=== PATIENT | female | born 2000 | race Caucasian/White ===

== ENCOUNTER 2019-06-07 20:05 | Outpatient (CLI) | payer MEDICAID ==
--- NOTE | 2019-06-07 21:38 | NUR ---
DR. CALI NOTIFIED AND REVIEWED PT'S BEHAVIOR AND ASSESSMENT RESULTS . PT IS A LOW RISK PER DR. CALI. DR. CALI STATED TO GIVE RESOURCES TO PT AT TIME OF DISCHARGE. NO FURTHER ORDERS AT THIS TIME. RESOURCES REVIEWED WITH PT AND SHE VERBALIZED UNDERSTANDING.
== END 2019-06-07 21:53 | disposition home or self-care (01) ==
LOC: D.LDO 20:05
PROVIDERS: ATTEND Obstetrics & Gynecology
DX: O36.8190 Decreased fetal movements, unspecified trimester, not applicable or unspecified (principal)

== ENCOUNTER 2019-07-14 00:32 | Outpatient (CLI) | payer MEDICAID ==
[2019-07-14 01:17] LABS: BILIRUBIN NEGATIVE (NEGATIVE); GLUCOSE NEGATIVE (NEGATIVE); KETONE NEGATIVE (NEGATIVE); NITRITE NEGATIVE (NEGATIVE); UROBILINOGEN NORMAL (NORMAL)
[2019-07-14 01:18] LABS: BACTERIA FEW /hpf (NEGATIVE); EPITHELIAL CELLS 0-5 /hpf (0-5); RED CELLS - URINE 0-5 /hpf (0-5); WHITE CELLS - URINE 0-5 /hpf (NEGATIVE)
== END 2019-07-14 01:45 | disposition home or self-care (01) ==
LOC: D.LDO 00:32
PROVIDERS: ATTEND Obstetrics & Gynecology
DX: O26.899 Other specified pregnancy related conditions, unspecified trimester (principal); Z3A.00 Weeks of gestation of pregnancy not specified; N85.8 Other specified noninflammatory disorders of uterus

== ENCOUNTER 2019-07-25 19:51 | Inpatient (IN) | payer MEDICAID ==
[~2019-07-25] VITALS: Ht 170.2 cm; Wt 112.0 kg
[2019-07-25 21:19] VITALS: BP 116/78; Ht 170.2 cm; Wt 112.0 kg
[2019-07-25] MEDS ORDERED: PRENAVITE1 TAB PO (22:19)
[2019-07-26 00:45] LABS: HEMATOCRIT 39.6 % (36.0-48.0); MCH 30.2 pg (26.0-34.0); MCHC 32.8 g/dL (31.0-37.0); MCV 91.9 fL (80.0-100.0); MEAN PLATELET VOLUME 9.4 fL (7.4-10.4); RBC 4.31 10x6/uL (4.00-5.40); RDW 12.9 % (11.5-14.5); WBC 7.7 10x3/uL (4.8-10.8)
[2019-07-26 01:06] LABS: BILIRUBIN NEGATIVE (NEGATIVE); GLUCOSE NEGATIVE (NEGATIVE); KETONE NEGATIVE (NEGATIVE); NITRITE NEGATIVE (NEGATIVE); UROBILINOGEN NORMAL (NORMAL)
[2019-07-26 01:08] LABS: AMORPHOUS SEDIMENT <1+ /lpf (NONE SEEN); BACTERIA FEW /hpf (NEGATIVE); EPITHELIAL CELLS 0-5 /hpf (0-5); RED CELLS - URINE 0-5 /hpf (0-5); WHITE CELLS - URINE 0-5 /hpf (NEGATIVE)
[2019-07-26 01:09] LABS: CALCIUM OXALATE CRYSTALS 0-5 /hpf (NONE SEEN)
[2019-07-26 19:17] VITALS: BP 104/63
--- NOTE | 2019-07-26 20:30 | NUR ---
FUNDUS FIRM/MIDLINE/@U LOCHIA SMALL RUBRA. NURSING WELL, BONDING WELL. MOTRIN HAS WORKED WELL FOR CRAMPING.
--- NOTE | 2019-07-26 21:25 | NUR ---
SANDWICH, APPLE JUICE 360 ML GIVEN TO PATIENT. CONSUMED 100 PERCENT TALKED WITH PATIENT, ANXIETY LEVEL LOW. FAMILY HAS GONE HOME. PATIENT SETTLED INTO POST ROOM, DENIES NEEDS AT THIS TIME
--- NOTE | 2019-07-26 22:30 | NUR ---
SITTING UP IN BED HOLDING BABY, APPLE JUICE 240 ML PER REQUEST, FUNDUS FIRM, MIDLINE, @U LOCHIA SMALL RUBRA, PERINEUM INTACT. DENIES DISCOMFORT
[2019-07-26 23:23] VITALS: BP 123/73
--- NOTE | 2019-07-26 23:30 | NUR ---
UP TO BATHROOM, VOIDED, SECOND VOIDING SINCE DELIVERY. MARITZA CARE PER SELF, TUCKS AND DERMOPLAST SPRAY AT BEDSIDE FOR PRN USE.
--- NOTE | 2019-07-27 00:30 | NUR ---
BABY SPITTING, DEMONSTRATED USE OF BULB SYRINGE AND CLEARING SECRETIONS, PATIENT DEMONSTRATES BACK. COMPLETE BED LINEN CHANGE, PATIENT CHANGED BABY ON BED AND WAS SOILED WITH URINE. PATIENT C/O CRAMPING, INFORMED MOTRIN COULD BE DISPENSED IN ONE HOUR
--- NOTE | 2019-07-27 01:10 | NUR ---
MOTRIN 600MG TAB FOR CRAMPING, 5/10 PAIN SCALE, FUNDUS FIRM/ML/@U LOCHIA SM RUBRA. BABY SWADDLED AND PLACED IN CRIB FOR PATIENT TO SLEEP
--- NOTE | 2019-07-27 02:10 | NUR ---
CALLED TO ROOM, BABY CHOKING, DEMONSTRATED USE OF SUCTION BULB, AND CLEARING SECRETIONS. WALKED TO NURSERY FOR ASSESSMENT, MOTHER FEELS BABY HAS ASPIRATED, REASSURED HE IS ONLY CLEARING FLUID FROM DELIVERY BUT NURSERY NURSE CAN LISTEN TO LUNGS WITH STETHOSCOPE TO REASSURE HER. BABY'S LUNGS CLEAR, ASLEEP IN CRIB AND RETURNED TO ROOM
--- NOTE | 2019-07-27 03:20 | NUR ---
MOM HOLDING BABY SKIN TO SKIN, COVERED WITH WARM BLANKET. CRAMPING ACCEPTABLE, SAT IN ROOM AND TALKED WITH MOTHER, IS UPSET THAT BABY TEMP IS UNDER 98.0 AND MAY NEED TO GO TO NURSERY. PATIENT CALMER AFTER TALKING AND EXPLAINING BABY BURING CALORIES AND SUGAR TO STAY WARM.
--- NOTE | 2019-07-27 05:38 | NUR ---
sitting up in bed holding baby, request coffee, fresh water taken to patient as well, denies any other needs, call light in reach and SR up x2
[2019-07-27 06:35] LABS: BASOPHILS 0 % (0-2); EOSINOPHILS 0.3 % (0-7); HEMOGLOBIN 10.4 g/dL (12-16); IMMATURE GRANULOCYTES 0.1 % (0-5); LYMPHOCYTES 24.9 % (15-50); MCH 30.4 pg (26.0-34.0); MCHC 33.1 g/dL (31.0-37.0); MCV 91.8 fL (80.0-100.0); MEAN PLATELET VOLUME 9.1 fL (7.4-10.4); MONOCYTES 6.5 % (2-11); NEUTROPHILS 68.2 % (40-80); WBC 8.9 10x3/uL (4.8-10.8)
[2019-07-27 06:42] LABS: HEMATOCRIT 31.4 % (36.0-48.0); PLATELET COUNT 204 10x3/uL (130-400); RBC 3.42 10x6/uL (4.00-5.40)
[2019-07-27 07:11] LABS: RAPID PLASMA REAGIN Non Reactive (Non Reactive)
[2019-07-27 07:16] VITALS: BP 106/58
--- NOTE | 2019-07-27 07:16 | NUR ---
BEDSIDE REPORT REC'D FROM Jun IRIZARRY, GEMA. THIS RN, Edvin SHI, BARBYN STRIKER OUT, AND Edvin SALGUERO, RN IN ROOM DURING REPORT. PT CALM AND APPRECIATIVE OF CARE AT THIS TIME. SHIFT ASSESSMENT COMPLETED PER FLOWSHEETS. VSS. FUNDUS FIRM, MIDLINE AND U2 WITH SMALL AMT RUBRA LOCHIA, NO CLOTS NOTED. PT EDUCATED ON POST BLEEDING AND WHAT TO EXPECT DURING POST PERIOD, EDUCATED ON S/S TO REPORT TO MD AND WHEN TO BE CONCERNED REGARDING BLEEDING, VERBALIZES UNDERSTANDING. PT VERBALIZES UNDERSTANDING OF PERICARE AND DENIES QUESTIONS. REPORTS THAT SHE SHOWERED LAST PM AND DOES NOT WISH TO SHOWER OR HAVE LINENS CHANGED AT THIS TIME. C/O INTERMITTENT ABD CRAMPING /10, DENIES NEED FOR INTERVERNTION, STATES CRAMPING IS PRIMARLY WITH AND FOLLOWING FUNDUAL CHECKS. APPLE JUICE PROVIDED. REFUSES SCD'S. BED IN LOW POSITION WITH SRUP X2. CALL LIGHT AND PHONE WITHIN REACH. INFANT RESTING QUIETLY IN OPEN CRIB AT BEDSIDE. POC REVIEWED, VERBALIZES UNDERSTANDING AND AGREEMENT.
--- NOTE | 2019-07-27 08:33 | NUR ---
DR. GALE ON UNIT. SPOKE WITH DR. GALE REGARDING PT'S REPORTS THAT SHE HAD GIVEN HER A PLAN THAT WAS NOT BEING FOLLOWED, HOWEVER RN COULD NOT FIND SAID PLAN ON PT CHART AND PT DENIES HAVING COPY WITH HER. PER DR. GALE, PT HAD NOT GIVEN HER PLAN OR DISCUSSED WITH HER A PLAN OTHER THAN WANTING FEMALE MD TO PERFORM HER DELIVERY. DR. GALE NOTIFIED OF EVENTS DURING PM SHIFT WITH PT AND STAFF REGARDING TEMP DROP, PT BEING AFRAID SOMEONE WOULD TAKE HER , AND THAT NO ONE WAS FOLLOWING HER PLAN. PER DR. GALE SHE WILL ADDRESS WITH PT AND REINFORCE TEACHING.
--- NOTE | 2019-07-27 08:41 | NUR ---
DR. GALE BACK TO DESK, REPORTS THAT SHE DISCUSSED NRSY CARE FOR WITH PT AND REASSURED PT THAT NO ONE WAS TRYING TO TAKE FROM HER. DISCUSSED RESTARTING CELEXA WITH DR. GALE, PER DR. GALE SHE HAD PRESCRIBED MED BUT PT HAD REPORTED TO HER THAT SHE WAS NOT TAKING. ORDERS REC'D TO DISCUSS WITH PT, IF PT HAD BEEN TAKING CELEXA RESUME HOME DOSE.
--- NOTE | 2019-07-27 09:03 | NUR ---
RN TO BEDSIDE. CURRENTLY IN NBN. PT STATES THAT SHE IS TRYING TO REST. CELEXA USE DISCUSSED WITH PT, REPORTS THAT SHE IS NOT TAKING AND HAD NOT BEEN TAKING. DENIES PAIN AND NEEDS. BREAKFAST TRAY REMOVED WITH 100% OF MEAL EATEN. BED IN LOW POSITION WITH SRUPX2. CALL LIGHT AND PHONE WITHIN PT REACH. PT ENCOURAGED TO REST, STATES THAT SHE WILL. WILL CONTINUE TO MONITOR.
--- NOTE | 2019-07-27 10:17 | NUR ---
INFANT, C/O ABD CRAMPING, MOTRIN GIVEN PER ORDER AND PT REQUEST. ICE WATER PROVIDED. PT WITH QUESTIONS REGARDING TIMING AND LENGTHS OF FEEDS, QUESTIONS ANSWERED, HILTON HUNT LPN ALSO IN ROOM AND CONTINUES TO PROVIDED EDUCATION TO PT. DENIES ADDITIONAL NEEDS WILL CONTINUE TO MONITOR.
--- NOTE | 2019-07-27 10:53 | NUR ---
PT CALLS VIA CALL LIGHT, RN TO BEDSIDE, BONDING WITH . REQUEST SALAD AND CHICKEN STRIPS WITH HONEY MUSTARD, DIET MESSAGE SENT. DENIES ADDITIONAL NEEDS. MED RECORDS JEWEL FLAT SURFACER TO ROOM TO DISCUSS INSURANCE INFO WITH PT. WILL CONTINUE TO MONITOR.
--- NOTE | 2019-07-27 11:08 | NUR ---
PAIN NOW 2/, BONDING WITH . REPORTS THAT SHE IS STILL FEELING OCCASIONAL CRAMPING BUT STATES THAT IT IS MUCH BETTER NOW THAT SHE IS NOT . DENIES NEEDS. ICE WATER PROVIDED. BED IN LOW POSITION WITH SRUP X2. CALL LIGHT AND PHONE WITHIN REACH. WILL CONTINUE TO MONITOR.
--- NOTE | 2019-07-27 12:37 | NUR ---
AMBULATORY IN HUFF WITH HILTON HUNT LPN AND IN OPEN CRIB. SHARMAINEMYRA NOTED, C/O ABD CRAMPING 7/10 WITH AMBULATION, 4/10 WHEN SITTING AT REST. STANDBY ASSIST BACK TO ROOM. REPORTS THAT SHE JUST COMPLETED FEEDING AND CRAMPING WAS MINIMAL PRIOR TO FEEDING. EDUCATED THAT CRAMPING IS NORMAL FOLLOWING AND IS BODY'S WAY OF GETTING UTERUS BACK TO PREPREG STATE, AND IT IS WORSE DURING FEEDINGS D/T RELEASE OF OXYTOCIN TO CAUSE LET DOWN, VERBALIZES UNDERSTANDING. WILL REPORT TO DR. GALE. ENCOURAGED REST AND PO HYDRATION. ICE WATER PROVIDED, CURRENTLY IN BED, WITH INFANT RESTING QUIETLY IN OPEN CRIB. BED IN LOW POSITION WITH SRUP X2. CALL LIGHT AND PHONE WITHIN REACH. WILL CONTINUE TO MONITOR.
--- NOTE | 2019-07-27 12:41 | NUR ---
REPORT CALLED TO DR. GALE, ORDERS REC'D FOR 650 MG PO TYLENOL [id number] CRAMPING/PAIN AND 1 TIME 5MG/325MG PERCOCET IF PT AGREEABLE. DR. GALE ALSO INFORMED THAT PEDI WANTED TO KEEP INFANT FOR OBSERVATION D/T HEARING ARRYTHMIA WHEN ASSESSMENT WAS COMPLETED. PER DR. GALE PT WILL REMAIN INPATIENT TONIGHT WITH .
--- NOTE | 2019-07-27 12:43 | NUR ---
SPOKE WITH PT REGARDING LAST REC'D MED ORDERS. PT REFUSES PERCOCET, STATES "IT WILL MAKE ME DROWSY AND I WON'T BE ABLE TO TAKE CARE OF NADIR." AGREEABLE TO TAKING TYLENOL. PT ALSO INFORMED THAT DR. GALE WOULD LIKE TO KEEP HER IN-PATIENT TONIGHT, VERBALIZES UNDERSTANDING.
--- NOTE | 2019-07-27 12:55 | NUR ---
TYLENOL GIVEN PER ORDER AND PT REQUEST. PT SITTING IN HIGH FOWLERS POSITION IN BED WITH IN ARMS, EATING AND FACETIMING. DENIES ADDITIONAL NEEDS. BED IN LOW POSITION WITH SRUP X2. CALL LIGHT AND PHONE WITHIN REACH. WILL CONTINUE TO MONITOR.
--- NOTE | 2019-07-27 13:53 | NUR ---
PAIN REASSESSMENT COMPLETED, CURRENTLY TALKING ON PHONE AND BREAST FEEDING , DENIES PAIN AND NEEDS. WILL CONTINUE TO MONITOR. BED IN LOW POSITION WITH SRUP X2. CALL LIGHT AND PHONE WITHIN REACH.
--- NOTE | 2019-07-27 14:19 | NUR ---
RN TO ROOM PER PT REQUEST. REPORTS THAT SHE HAD DIARRHEA FOLLOWING EATING CHICKEN STRIPS. PANTIES AND PADS PROVIDED PER PT REQUEST. RESTING IN OPEN CRIB, PT REQUESTS INFANT BE TAKEN TO NBN FOR HER REST, DONE PER REQUEST IN OPEN CRIB. DENIES PAIN AND NEEDS AT THIS TIME. TRAY REMOVED FROM ROOM WITH 100% MEAL EATEN. ICE WATER PROVIDED. PT REQUESTS NOT TO BE DISTURBED UNTIL TIME FOR TO FEED AGAIN. BED IN LOW POSITION WITH SRUP X2. CALL LIGHT AND PHONE PLACED WITHIN PT REACH AND PT INSTRUCTED RAILROAD MECHANIC LIGHT USE TO GET RN TO ASSIST PRN PRIOR TO INFANT BEING RETURNED TO ROOM, VERBALIZES UNDERSTANDING.LIGHTS OFF AND ROOM TEMP DECREASED PER PT REQUEST.
[2019-07-27 16:16] VITALS: BP 108/61
--- NOTE | 2019-07-27 16:16 | NUR ---
PREPARING TO BREAST FEED . MOTRIN GIVEN PER PT REQUEST FOR C/O ABD CRAMPNING. VSS. FUNDUS FIRM, MIDLINE AND U2 WITH SCANT RUBRA LOCHIA, NO CLOTS NOTED. DIET MESSAGE SENT PER PT REQUEST. C/O OF PAIN AND DISCOMFORT TO LEFT NIPPLE POOR LATCH NOTED, ASSISTED WITH GETTING PROPER LATCH, VERBALIZES APPRECIATION. ICE WATER PROVIDED. DENIES ADDITIONAL NEEDS. BED IN LOW POSITION WITH SRUP X2. CALL LIGHT AND PHONE WITHIN REACH. WILL CONTINUE TO MONITOR.
--- NOTE | 2019-07-27 17:08 | NUR ---
PT AMBULATORY IN HUFF WITH AND NBN DELIVERY ARCHITECT. DENIES PAIN AND NEEDS. STEADY GAIT NOTED. WILL CONTINUE TO MONITOR.
--- NOTE | 2019-07-27 18:06 | NUR ---
REMAINS IN NBN BONDING WITH . NOTIFIED THAT REQUESTED TRAY HAD BEEN BROUGHT AND LEFT IN ROOM WHEN READY, VERBALIZES UNDERSTANDING AND APPRECIATION. DENIES NEEDS AT THIS TIME. WILL CONTINUE TO MONITOR.
[2019-07-27 19:30] VITALS: BP 120/80
--- NOTE | 2019-07-27 19:30 | NUR ---
PT REC'D IN BED AT THIS TIME. DENIES PAIN AT THIS TIME. FUNDUS FIRM AND MIDLINE WITH SCANT LOCHIA NOTED AT THIS TIME. ASSESSEMTN COMPLETED PER FLOWSHEET AT THIS TIME. PT APOLOGETIC FOR BEHAVIOR ON LAST NIGHT. PT REASSURED AT THIS TIME. PLAN OF CARE REVIEWED. PT RELAXED AND COMFORTABLE AT THIS TIME. NO DISTRESS NOTED AT THIS TIME. Waqas ROBERTSON RN
--- NOTE | 2019-07-27 20:30 | NUR ---
PT REC'D IN BED AT THIS TIME. ON PHONE AT THIS TIME. NO NEEDS VOICED AT THIS TIME. Waqas ROBERTSON RN
--- NOTE | 2019-07-27 21:00 | NUR ---
PT REQUESTING ASSISTANCE AT THIS TIME. PT STATES THAT THERE IS SOME " RED STUFF" IN HER BABY'S DIAPER. EXPLAINTED TO PATIENT THAT THIS IS A NORMAL FINDING IN INFANTS. PT RELIEVED AND UNDERSTANDING VERBALIZED. Waqas ROBERTSON. RN
--- NOTE | 2019-07-27 21:45 | NUR ---
PT MEDICATED FOR CRAMPING WITH TYLENOL. WILL CONTINUE TO MONITOR. Waqas ROBERTSON RN
--- NOTE | 2019-07-27 22:30 | NUR ---
PT STATES THAT PAIN IS A 1 AFTER TYLENOL. PT WANTING A SNACK AT THIS TIME. PT GIVEN PUDDING. NURSERY NURSE IN ROOM AND INFORMED PATIENT OF NEED FOR WEIGHT AFTER MIDNIGHT. PT GIVEN OPTION TO HAVE THI SDONE IN THE ROOM ORTAKE TO NURSERY. PT STATES THAT WE MAY TAKE INGANT TO NURSERY TO DO WHATEVER WE NEED TO DO. NO DISTRESS NOTED AT THIS TIME. Waqas ROBERTSON. RN
--- NOTE | 2019-07-28 00:25 | NUR ---
PT REC'D IN BED ON CELL PHONE AT THIS TIME. DENIES ANY NEEDS OR PAIN AT THIS TIME. Waqas ROBERTSON RN
--- NOTE | 2019-07-28 01:45 | NUR ---
PT UP IN SHOWER AT THIS TIME. PULLED EMERGENCY LIGHT. ASKED IF WS CRYING. INFANT IN CRIB QUIET. NO OTHER NEEDS VPICED AT THIS TIME. Waqas ROBERTSON RN
--- NOTE | 2019-07-28 03:15 | NUR ---
PT SITTING UP IN BED AT THIS TIME. PT STATES THAT SHE IS HUNGRY. PT PROVIDED WITH SANDWICH TRAY. NO OTHER NEEDS VOICED. Waqas ROBERTSON RN
--- NOTE | 2019-07-28 04:15 | NUR ---
PT CALLED AT THIS TIME AND WANTS TO NURSERY WHEN HE IS FINISHED FEEDING. PT INSTRUCTED TO CALL WHEN FINISHED AND STAFF WOULD TAKE TO NURSERY. Waqas ROBERTSON RN
[2019-07-28 07:09] VITALS: BP 120/71
--- NOTE | 2019-07-28 07:09 | NUR ---
RECEIVED PT SITTING UP IN BED. AWAKE. VSS. HRRR WITHOUT AUDIBLE MURMUR. BBS CLEAR. BS X 4. ABDOMEN SOFT/NON-DISTENDED. FUNDUS FIRM AT U/2. RUBRA LOCHIA SMALL AMT. NO CLOTS NOTED. PT STATES PASSING CLOTS. DENIES ANY CLOTS THE SIZE OF EGG OR BIGGER. DENIES SOAKING PAD IN ONE HOUR. STATES PASSING GAS AND HAS HAD BM SINCE DELIVERY. PERINEUM WITHOUT EDEMA. NEG HOMANS' SIGN. PPP. 2+/2+ EDEMA NOTED TO BLE. PT C/O ABDOMINAL CRAMPING OF "4" ON 0-10 PAIN SCALE. MOTRIN 600 MG GIVEN PO ORDERED. PT INSTRUCTED ON MED. VERBALIZES UNDERSTANDING. SR UP X 2. CALL LIGHT IN REACH.
--- NOTE | 2019-07-28 08:15 | NUR ---
DR GALE CALLS. ORDER RECEIVED FOR CBC NOW.
--- NOTE | 2019-07-28 08:22 | NUR ---
PT SITTING UP IN BED. TALKING ON PHONE. NOTIFIED OF ORDERED CBC AND LAB WILL BE IN TO DRAW PT BLOOD. PT VERBALIZES UNDERSTANDING.
--- NOTE | 2019-07-28 08:46 | NUR ---
LAB STAFF HERE TO COLLECT ORDERED CBC.
[2019-07-28 08:56] LABS: BASOPHILS 0 % (0-2); EOSINOPHILS 1.3 % (0-7); HEMATOCRIT 33.3 % (36.0-48.0); HEMOGLOBIN 10.9 g/dL (12-16); IMMATURE GRANULOCYTES 0.3 % (0-5); LYMPHOCYTES 30.3 % (15-50); MCH 30.4 pg (26.0-34.0); MCHC 32.7 g/dL (31.0-37.0); MCV 92.8 fL (80.0-100.0); MEAN PLATELET VOLUME 8.7 fL (7.4-10.4); MONOCYTES 6.6 % (2-11); NEUTROPHILS 61.5 % (40-80); PLATELET COUNT 211 10x3/uL (130-400); RBC 3.59 10x6/uL (4.00-5.40); RDW 13.1 % (11.5-14.5); WBC 7.5 10x3/uL (4.8-10.8)
--- NOTE | 2019-07-28 09:41 | NUR ---
PT CALLS ON LIGHT. C/O ABDOMINAL CRAMPING/ACHING OF "3" ON 0-10 PAIN SCALE. MOTRIN 600 MG GIVEN PO ORDERED. PT INSTRUCTED ON MED. VERBALIZES UNDERSTANDING.
--- NOTE | 2019-07-28 11:40 | NUR ---
ROUNDS MADE. PT IN BATHROOM. REQUESTS AND RECEIVES PERIPADS. DENIES PAIN OR C/O.
--- NOTE | 2019-07-28 13:25 | NUR ---
DR GALE ON UNIT. NOTIFED OF CBC RESULTS.
--- NOTE | 2019-07-28 14:15 | NUR ---
DISCHARGE INSTRUCTIONS GIVEN TO PT. PT VERBALIZES UNDERSTANDING OF ALL INSTRUCTIONS. COPIES GIVEN TO PT. PT AT THIS TIME. AWAITING RIDE.
--- NOTE | 2019-07-28 14:19 | NUR ---
PT C/O ABDOMINAL CRAMPING OF "5" ON 0-10 PAIN SCALE. MOTRIN 600 MG GIVEN PO ORDERED. PT INSTRUCTED ON MED. VERBALIZES UNDERSTANDING.
--- NOTE | 2019-07-28 14:50 | NUR ---
PT READY FOR DISCHARGE. DISCHARGED WITH INFANT PER Edvin SHI, CONTACT MANAGER TO PRIVATE VEHICLE. BOTH IN STABLE CONDITION.
== END 2019-07-28 14:50 | disposition home or self-care (01) | DRG 998 ==
LOC: D.LD 19:51
PROVIDERS: ADMIT Student in an Organized Health Care Education/Training Program; ATTEND Student in an Organized Health Care Education/Training Program
PROC: 10E0XZZ Delivery of Products of Conception, External Approach (ICD-10-PCS; principal; 2019-07-26)
DX: O69.81X0 Labor and delivery complicated by cord around neck, without compression, not applicable or unspecified (principal); O75.89 Other specified complications of labor and delivery; R00.0 Tachycardia, unspecified

== ENCOUNTER 2020-07-02 14:42 | Emergency (ER) | payer MEDICAID ==
[~2020-07-02] VITALS: Ht 170.2 cm; Wt 77.3 kg
[~2020-07-02 14:42] MED LIST: PRENAVITE1 TAB PO
[2020-07-02 14:51] VITALS: Ht 170.2 cm; Wt 77.3 kg
[2020-07-02 15:06] LABS: BASOPHILS 0.1 % (0-2); EOSINOPHILS 0.5 % (0-7); HEMATOCRIT 39.7 % (36.0-48.0); HEMOGLOBIN 13.3 g/dL (12-16); LYMPHOCYTE ABS# 2.52 10x3/uL (1.18-3.74); MCH 30.3 pg (26.0-34.0); MCHC 33.5 g/dL (31.0-37.0); MCV 90.4 fL (80.0-100.0); MEAN PLATELET VOLUME 9.1 fL (7.4-10.4); MONOCYTES 6.1 % (2-11); NEUTROPHIL ABS# 4.83 10x3/uL (1.56-6.13); NEUTROPHILS 61.3 % (40-80); RBC 4.39 10x6/uL (4.00-5.40); RDW 12.6 % (11.5-14.5); WBC 7.9 10x3/uL (4.8-10.8)
[2020-07-02 15:07] LABS: PLATELET COUNT 320 10x3/uL (130-400)
[2020-07-02 15:13] LABS: BILIRUBIN NEGATIVE (NEGATIVE); KETONE NEGATIVE (NEGATIVE); NITRITE NEGATIVE (NEGATIVE); UROBILINOGEN NORMAL mg/dL (< 2)
[2020-07-02 15:14] LABS: SQUAMOUS EPITHELIAL 0-5 HPF (0-4)
[2020-07-02 15:15] LABS: BACTERIA MODERATE HPF (NONE SEEN)
[2020-07-02 15:15] LABS: CALC OSMOLALITY 278 mosm/kg (275-300); CALCIUM 8.6 mg/dL (8.5-10.1); CARBON DIOXIDE 26.4 mmol/L (21.0-32.0); CHLORIDE - SERUM 102 mmol/L (98-107); CREATININE - SERUM 0.7 mg/dL (0.6-1.3); GLUCOSE 93 mg/dL (74-106); POTASSIUM - SERUM 3.9 mmol/L (3.5-5.1); SODIUM 139 mmol/L (136-145); UREA NITROGEN 14 mg/dL (7-18); eGFR NON AFRICAN AMERICAN > 90 mL/min (90-120)
[2020-07-02 15:16] LABS: HCG URINE NEGATIVE (NEGATIVE)
[2020-07-02 15:20] LABS: ALBUMIN 3.8 g/dL (3.4-5.0); ALKALINE PHOSPHATASE 134 U/L (30-120); ALT (SGPT) 19 U/L (10-68); BILIRUBIN - TOTAL 0.29 mg/dL (0.2-1.3); PROTEIN - SERUM 7.5 g/dL (6.4-8.2)
[2020-07-02 15:27] LABS: UDS - AMPHET NEGATIVE QUAL (NEGATIVE); UDS - BARB NEGATIVE QUAL (NEGATIVE); UDS - BENZO NEGATIVE QUAL (NEGATIVE); UDS - COCAINE NEGATIVE QUAL (NEGATIVE); UDS - OPIATE NEGATIVE QUAL (NEGATIVE); UDS - PCP NEGATIVE QUAL (NEGATIVE); UDS - THC POSITIVE QUAL (NEGATIVE)
--- NOTE | 2020-07-02 15:30 | NUR ---
DOCTOR KARELY NOTIFIED OF PATIENT'S BEHAVIOR AND ASSESSMENT RESULTS. PATIENT IS HIGH RISK. SITTER ORDERED AND AT BEDSIDE. SAFETY PLAN INITIATED. RESOURCES GIVEN AND SHE VERBALIZES UNDERSTANDING.
[2020-07-02 16:22] LABS: SARS-CoV-2 ANTIGEN NEGATIVE- SARS-COV-2 (NEGATIVE)
[2020-07-02 17:18] VITALS: BP 130/72
== END 2020-07-02 17:28 | disposition other institution (70) ==
LOC: D.ER 14:42
PROVIDERS: Family Medicine
DX: R45.851 Suicidal ideations (principal); N39.0 Urinary tract infection, site not specified; J45.909 Unspecified asthma, uncomplicated

== ENCOUNTER 2020-07-29 15:59 | Emergency (ER) | payer MEDICAID ==
[~2020-07-29] VITALS: Ht 170.2 cm; Wt 86.4 kg
[2020-07-29 16:07] VITALS: Ht 170.2 cm; Wt 86.4 kg
[2020-07-29 16:53] LABS: BASOPHILS 0.2 % (0-2); EOSINOPHILS 0.5 % (0-7); HEMATOCRIT 39.5 % (36.0-48.0); HEMOGLOBIN 13.1 g/dL (12-16); IMMATURE GRANULOCYTES 0.2 % (0-5); LYMPHOCYTE ABS# 2.12 10x3/uL (1.18-3.74); LYMPHOCYTES 34.5 % (15-50); MCHC 33.2 g/dL (31.0-37.0); MCV 90.6 fL (80.0-100.0); MEAN PLATELET VOLUME 9.3 fL (7.4-10.4); MONOCYTES 7.3 % (2-11); NEUTROPHIL ABS# 3.52 10x3/uL (1.56-6.13); NEUTROPHILS 57.3 % (40-80); PLATELET COUNT 324 10x3/uL (130-400); RBC 4.36 10x6/uL (4.00-5.40); RDW 12.6 % (11.5-14.5); WBC 6.1 10x3/uL (4.8-10.8)
[2020-07-29 16:53] LABS: BILIRUBIN NEGATIVE (NEGATIVE); KETONE NEGATIVE (NEGATIVE); NITRITE NEGATIVE (NEGATIVE); UROBILINOGEN NORMAL mg/dL (< 2)
[2020-07-29 16:54] LABS: HCG URINE NEGATIVE (NEGATIVE)
[2020-07-29 17:01] LABS: UDS - AMPHET NEGATIVE QUAL (NEGATIVE); UDS - BARB NEGATIVE QUAL (NEGATIVE); UDS - BENZO NEGATIVE QUAL (NEGATIVE); UDS - COCAINE NEGATIVE QUAL (NEGATIVE); UDS - OPIATE NEGATIVE QUAL (NEGATIVE); UDS - PCP NEGATIVE QUAL (NEGATIVE); UDS - THC POSITIVE QUAL (NEGATIVE)
[2020-07-29 17:03] LABS: CALC OSMOLALITY 282 mosm/kg (275-300); CALCIUM 8.6 mg/dL (8.5-10.1); CARBON DIOXIDE 26.7 mmol/L (21.0-32.0); CHLORIDE - SERUM 106 mmol/L (98-107); CREATININE - SERUM 0.6 mg/dL (0.6-1.3); GLUCOSE 84 mg/dL (74-106); POTASSIUM - SERUM 3.8 mmol/L (3.5-5.1); SODIUM 142 mmol/L (136-145); UREA NITROGEN 14 mg/dL (7-18); eGFR NON AFRICAN AMERICAN > 90 mL/min (90-120)
[2020-07-29 17:14] LABS: SARS-CoV-2 ANTIGEN NEGATIVE- SARS-COV-2 (NEGATIVE)
[2020-07-29 17:17] LABS: ALBUMIN 3.6 g/dL (3.4-5.0); ALKALINE PHOSPHATASE 108 U/L (30-120); ALT (SGPT) 17 U/L (10-68); BILIRUBIN - TOTAL 0.26 mg/dL (0.2-1.3); PROTEIN - SERUM 7.2 g/dL (6.4-8.2)
--- NOTE | 2020-07-29 20:57 | NUR ---
patient in er for suicidial thoughts, she has been [facility], [facility] is here to get her at this time. [phone] number given for future reference
[2020-07-29 20:59] VITALS: BP 132/85
== END 2020-07-29 21:00 ==
LOC: D.ER 15:59
PROVIDERS: Family Medicine
DX: F31.9 Bipolar disorder, unspecified (principal); R45.851 Suicidal ideations

== ENCOUNTER 2020-09-08 14:13 | Inpatient (IN) | payer MEDICAID ==
[~2020-09-08] VITALS: Ht 170.2 cm; Wt 86.4 kg
[2020-09-08] VITALS (13 sets, daily range): BP systolic 92–135; BP diastolic 53–86; Ht 170.2 cm; Wt 86.4 kg
[2020-09-08 14:37] LABS: BASOPHILS 0.4 % (0-2); EOSINOPHILS 0.5 % (0-7); HEMATOCRIT 41.8 % (36.0-48.0); HEMOGLOBIN 13.8 g/dL (12-16); LYMPHOCYTES 36.9 % (15-50); MCH 29.9 pg (26.0-34.0); MCV 90.7 fL (80.0-100.0); MEAN PLATELET VOLUME 7.3 fL (7.4-10.4); MONOCYTES 7.7 % (2-11); NEUTROPHILS 54.5 % (40-80); RDW 13.6 % (11.5-14.5); WBC 4.5 10x3/uL (4.8-10.8)
[2020-09-08 14:43] LABS: BACTERIA MOD HPF (<MOD); BILIRUBIN NEGATIVE (NEGATIVE); KETONE NEGATIVE mg/dL (< 1+); NITRITE NEGATIVE (NEGATIVE); SQUAMOUS EPITHELIAL 1 HPF (0-4); UROBILINOGEN NORMAL mg/dL (< 2); WHITE CELLS - URINE 14 HPF (0-4)
[2020-09-08 14:46] LABS: PLATELET COUNT 248 10x3/uL (130-400)
[2020-09-08 14:47] LABS: HCG URINE NEGATIVE (NEGATIVE)
[2020-09-08 14:56] LABS: CALC OSMOLALITY 278 mosm/kg (275-300); CALCIUM 8.8 mg/dL (8.5-10.1); CARBON DIOXIDE 25.5 mmol/L (21.0-32.0); CHLORIDE - SERUM 105 mmol/L (98-107); CREATININE - SERUM 0.6 mg/dL (0.6-1.3); GLUCOSE 83 mg/dL (74-106); POTASSIUM - SERUM 3.5 mmol/L (3.5-5.1); SODIUM 141 mmol/L (136-145); UREA NITROGEN 10 mg/dL (7-18); eGFR NON AFRICAN AMERICAN > 90 mL/min (90-120)
[2020-09-08 14:58] LABS: UDS - AMPHET NEGATIVE QUAL (NEGATIVE); UDS - BARB NEGATIVE QUAL (NEGATIVE); UDS - BENZO NEGATIVE QUAL (NEGATIVE); UDS - COCAINE NEGATIVE QUAL (NEGATIVE); UDS - OPIATE NEGATIVE QUAL (NEGATIVE); UDS - PCP NEGATIVE QUAL (NEGATIVE); UDS - THC POSITIVE QUAL (NEGATIVE)
[2020-09-08 15:09] LABS: ALBUMIN 3.6 g/dL (3.4-5.0); ALKALINE PHOSPHATASE 77 U/L (30-120); ALT (SGPT) 16 U/L (10-68); BILIRUBIN - TOTAL 0.29 mg/dL (0.2-1.3); PROTEIN - SERUM 7.2 g/dL (6.4-8.2)
--- NOTE | 2020-09-08 17:36 | NUR ---
PATIENT RESTING IN BED, EYES CLOSED. PATIENT UNABLE TO PARTICIPATE IN ASSESSMENT DUE TO INABILITY TO MAINTAIN CONSCIOUSNESS. SITTER AT BEDSIDE. RESPIRATIONS EVEN AND UNLABORED.
--- NOTE | 2020-09-08 19:58 | NUR ---
CALLED KATIE IN LONG TERM FOR SCREENING
--- NOTE | 2020-09-08 21:07 | NUR ---
UP TO BSC TO URINATE GAIT STEADY. HR 114 WHEN UP
--- NOTE | 2020-09-08 21:30 | NUR ---
SCREENER AT BEDSIDE
--- NOTE | 2020-09-08 21:58 | NUR ---
DR CALI NOTIFIED AND SITTER ORDERED. SITTER AT BEDSIDE. NOTIFIED CHARGE NURSE AND ATTENDING IN REGARDS TO ASSESSMENT FINDINGS. RESOURCES GIVEN TO PT AND SAFETY PLAN INITIATED.
[2020-09-09] VITALS (8 sets, daily range): BP systolic 88–107; BP diastolic 55–71
[2020-09-09 05:23] LABS: BASOPHILS 0.2 % (0-2); EOSINOPHILS 0.6 % (0-7); HEMATOCRIT 35.2 % (36.0-48.0); LYMPHOCYTES 25.1 % (15-50); MCH 30.8 pg (26.0-34.0); MCHC 33.9 g/dL (31.0-37.0); MCV 90.7 fL (80.0-100.0); MEAN PLATELET VOLUME 7.1 fL (7.4-10.4); MONOCYTES 8.4 % (2-11); NEUTROPHILS 65.7 % (40-80); PLATELET COUNT 217 10x3/uL (130-400); RBC 3.88 10x6/uL (4.00-5.40); RDW 13.5 % (11.5-14.5)
[2020-09-09 05:24] LABS: WBC 5.7 10x3/uL (4.8-10.8)
[2020-09-09 05:29] LABS: CALC OSMOLALITY 279 mosm/kg (275-300); CALCIUM 7.8 mg/dL (8.5-10.1); CARBON DIOXIDE 26.6 mmol/L (21.0-32.0); CHLORIDE - SERUM 108 mmol/L (98-107); CREATININE - SERUM 0.7 mg/dL (0.6-1.3); GLUCOSE 85 mg/dL (74-106); POTASSIUM - SERUM 3.8 mmol/L (3.5-5.1); SODIUM 142 mmol/L (136-145); UREA NITROGEN 8 mg/dL (7-18); eGFR NON AFRICAN AMERICAN > 90 mL/min (90-120)
[2020-09-09 05:34] LABS: ALKALINE PHOSPHATASE 67 U/L (30-120); ALT (SGPT) 15 U/L (10-68); BILIRUBIN - TOTAL 0.24 mg/dL (0.2-1.3); MAGNESIUM - SERUM 1.9 mg/dL (1.8-2.4); PHOSPHOROUS 2.7 mg/dL (2.5-4.9); PROTEIN - SERUM 6.1 g/dL (6.4-8.2)
[2020-09-09] MEDS ORDERED: ZOFRAN INJ IV (14:40)
[2020-09-09] MEDS ORDERED: ACETAMINOPHEN325 MG PO (14:40)
[2020-09-09] MEDS ORDERED: MACRODANTIN100 MG PO (14:41)
[2020-09-09] MEDS ORDERED: DIFLUCAN100 MG PO (14:42)
--- NOTE | 2020-09-09 15:18 | NUR ---
NS INFUSION STOPPED AT 1505
== END 2020-09-09 15:15 | disposition short-term general hospital (02) | DRG 918 ==
LOC: D.ER 14:13 → D.EDHOLD 15:11
PROVIDERS: Emergency Medicine; ADMIT Emergency Medicine; ATTEND Emergency Medicine
DX: T43.012A Poisoning by tricyclic antidepressants, intentional self-harm, initial encounter (principal); N39.0 Urinary tract infection, site not specified; R45.851 Suicidal ideations; F32.2 Major depressive disorder, single episode, severe without psychotic features; J45.909 Unspecified asthma, uncomplicated; F90.9 Attention-deficit hyperactivity disorder, unspecified type; F43.10 Post-traumatic stress disorder, unspecified